=== PATIENT | male | born 1975 | race Caucasian/White ===

== ENCOUNTER 2017-01-07 10:31 | Emergency (ER) | payer SELFPAY ==
[2017-01-07 10:43] VITALS: BP 150/101; BMI 27.3
--- NOTE | 2017-01-07 11:01 | DR.GENAD ---
HPI - PCP Primary Care Physician: nfd - Complaint/Symptoms Chief Complaint:: patient stated he had a pin placed in his left shoulder about 20 years ago. he stated for the last 3 days he has had extreme shoulder pain. pt emily any trauma - Nurses notes reviewed Nurses Notes Review: Yes - Source History Provided: Patient - Mode of Arrival Mode of Arrival: Ambulatory - Timing Onset of Chief Complaint: 01/04/17 Came on: Gradually - Duration Duration: Constant How lon Duration: Days - Location Location: left shoulder - Severity Severity: Mild (shoulder pain) - Modifying Factors Worsens:: movement - Associated Signs and Symptoms Associated Signs and Symptoms: decreased ROM PMH - PMH Past Medical History: No Past Surgical History: Yes Surgical History: Ortho Surgery - Family History History of Family Medical Conditions: No - Social History Does patient currently use any type of tobacco product: Yes Have you used tobacco products in the last 12 months: Yes Type of Tobacco Use: Cigarettes How many years tobacco product used: 20 Does any household member use tobacco: No Alcohol Use: None Do you use any recreational Drugs:: No Lives With: Family Lives Where: Home - infectious screening In the last 2 months have you had wt loss of >10#?: NO Have you had fever, night sweats or hemotysis?: No Have you traveled outside the country in the last 6 months?: No Isolation: Standard ROS - Review of Systems Constitutional: No Symptoms Reported Eyes: No Symptoms Reported ENTM: No Symptoms Reported Respiratoy: No Symptoms Reported Cardiovascular: No Symptoms Reported Gastrointestinal/Abdominal: No Symptoms Reported Genitourinary: No Symptoms Reported Neurological: No Symptoms Reported Musculoskeletal: Shoulder (left shoulder pain ) Integumentary: No Symptoms Reported Hematologic/Lymphatic: No Symptoms Reported Endocrine: No Symptoms Reported Psychiatric: No Symptoms Reported PE - Vital Signs Vitals: Temperature 99.1 F Pulse Rate 75 Respiratory Rate 18 Blood Pressure 150/101 O2 Sat by Pulse Oximetry 100 - General Limitations: No Limitations General Appearance: Alert, In No Apparent Distress - Eyes Eye exam: EOMI. negative: Scleral Icterus, Conjunctival Injection - ENT External Ear Exam: Normal External Inspection - Neck Neck Exam: Normal Inspection, Full ROM, Trachea Midline - Respiratory Respiratory Exam: negative: Accessory Muscle Use, Respiratory Distress - Extremities Extremities Exam: Normal Inspection, Tenderness (left shoulder, decreased ROM). negative: Full ROM - Neurologic Neurological Exam: Alert, Oriented X3, CN II-XII Intact, Other (neuro/vsc intact left hand) - Psychiatric Psychiatric Exam: Normal Mood - Skin Skin Exam: Intact, Normal Color - Diagnosis Discharge Problem: Shoulder pain, left Qualifiers: Chronicity: acute Qualified Code(s): M25.512 - Pain in left shoulder - Discharge Plan Condition: Stable Prescriptions: Acetaminophen/Codeine Tab [TYLENOL w/CODEINE #3 (300 MG/30 MG) *] 1 tab PO Q6H PRN #14 tab PRN Reason: Pain Prednisone [Prednisone DS Dosepak 10 mg (12 day)] 1 em PO ONCE #1 em - Follow ups/Referrals Follow ups/Referrals: NFD,None [Primary Care Provider] - 3 days - Instructions Instructions: Shoulder Pain
[2017-01-07] MEDS ORDERED: ULTRAM PO ONE (11:12)
[2017-01-07] MEDS ORDERED: ULTRAM ONE (11:24)
== END 2017-01-07 11:32 | disposition home or self-care (01) ==
LOC: ER 10:49
DX: M25.512 Pain in left shoulder (principal)
CPT/HCPCS: 99281; 99282

== ENCOUNTER 2017-07-08 08:50 | Emergency (ER) | payer SELFPAY ==
[2017-07-08 08:58] VITALS: BP 160/95; BMI 26.6
[2017-07-08] MEDS ORDERED: TORADOL 60 MG VIAL IM ONE (10:14)
[2017-07-08] MEDS ORDERED: ROCEPHIN VIAL 1 GM IM ONE (10:15)
[2017-07-08] MEDS ORDERED: DECADRON INJ IM ONE (10:15)
[2017-07-08] MEDS ORDERED: TORADOL 60 MG VIAL ONE (10:18)
[2017-07-08] MEDS ORDERED: DECADRON INJ ONE (10:18)
[2017-07-08] MEDS ORDERED: ROCEPHIN VIAL 1 GM ONE (10:19)
--- NOTE | 2017-07-08 10:21 | DR.GENAD ---
HPI - PCP Primary Care Physician: NFD - Complaint/Symptoms Chief Complaint:: "I have had some tooth pain for a while now, but yesterday I woke up and the whole side of my face was swollen. It has gotten even worse today. The right side has even made my eye swollen." - Source History Provided: Patient - Mode of Arrival Mode of Arrival: Ambulatory - Timing Onset of Chief Complaint: 07/07/17 PMH - PMH Past Medical History: No Past Surgical History: Yes Surgical History: Ortho Surgery Past Surgical History Comment: Pin in left shoulder - Family History History of Family Medical Conditions: No - Social History Does patient currently use any type of tobacco product: Yes Have you used tobacco products in the last 12 months: Yes Type of Tobacco Use: Cigarettes Does any household member use tobacco: No Alcohol Use: None Do you use any recreational Drugs:: No Lives With: Family Lives Where: Home - infectious screening In the last 2 months have you had wt loss of >10#?: NO Have you had fever, night sweats or hemotysis?: No Have you traveled outside the country in the last 6 months?: No Isolation: Standard PE - Vital Signs Vitals: Temperature 97.5 F Pulse Rate 90 Respiratory Rate 18 Blood Pressure 160/95 O2 Sat by Pulse Oximetry 98 - Discharge Plan Condition: Stable Prescriptions: Amoxicillin [Amoxil 875 mg] 875 mg PO BID #20 tab Ibuprofen [MOTRIN TAB 600 MG *] 600 mg PO TID PRN #20 tab PRN Reason: Pain/Inflammation Tramadol HCl 50 mg PO Q8H #15 tablet - Follow ups/Referrals Follow ups/Referrals: NFD,None [Primary Care Provider] - 3 days - Instructions Instructions: Dental Abscess, [id number], Gingivitis Additional Instructions: RETURN TO ED IF WORSE.
== END 2017-07-08 11:08 | disposition home or self-care (01) ==
LOC: ER 09:05
DX: K04.7 Periapical abscess without sinus (principal); K05.10 Chronic gingivitis, plaque induced
CPT/HCPCS: 96372; 99282; J0696; J1100; J1885